=== PATIENT | female | born 1935 | race Caucasian/White ===

== ENCOUNTER 2022-09-11 09:58 | Inpatient (IN) | payer MEDICARE, BC ==
[~2022-09-11] VITALS: Ht 167.6 cm; Wt 93.3 kg
[2022-09-11 11:20] LABS: BASOPHILS % (AUTO) 0.3 % (0-1); EOSINOPHILS # (AUTO) 0.1 X10'3 (0-0.9); EOSINOPHILS % (AUTO) 0.7 % (0-6); HEMATOCRIT 36.1 % (35.0-45.0); LYMPHOCYTES # (AUTO) 0.7 X10'3 (1.1-4.8); LYMPHOCYTES % (AUTO) 5.7 % (21-51); MEAN CORPUSCULAR HEMOGLOBIN 31.1 PG (27.0-31.0); MEAN CORPUSCULAR HGB CONC 33.2 g/dL (33.0-36.5); MEAN CORPUSCULAR VOLUME 93.6 FL (78-98); MEAN PLATELET VOLUME 8.1 FL (7.4-10.4); MONOCYTES # (AUTO) 0.3 X10'3 (0-0.9); MONOCYTES % (AUTO) 2.2 % (2-12); NEUTROPHILS # (AUTO) 10.5 X10'3 (1.8-7.7); NEUTROPHILS % (AUTO) 91.1 % (42-75); PLATELET COUNT 201 X10'3 (140-440); RED BLOOD COUNT 3.86 X10'6 (4.20-5.60); RED CELL DISTRIBUTION WIDTH 14.7 % (11.5-14.5); WHITE BLOOD COUNT 11.6 X10'3 (4.5-11.0)
[2022-09-11 11:37] LABS: ALANINE AMINOTRANSFERASE 13 U/L (12-78); ALBUMIN 3.7 G/DL (3.4-5.0); ALBUMIN/GLOBULIN RATIO 1.1 (1.1-1.5); ALKALINE PHOSPHATASE 87 IU/L (46-116); ANION GAP 9 (8-16); ASPARTATE AMINO TRANSFERASE 12 U/L (10-37); BILIRUBIN,TOTAL 0.4 MG/DL (0.1-1.0); BLOOD UREA NITROGEN 42 MG/DL (7-18); BUN/CREATININE RATIO 20.2 (6.6-38.0); CALCIUM 9.5 MG/DL (8.5-10.1); CHLORIDE 104 MMOL/L (99-107); CREATININE 2.08 MG/DL (0.40-0.90); GLUCOSE 224 MG/DL (70-104); POTASSIUM 5.2 MMOL/L (3.5-5.1); SODIUM 138 MMOL/L (135-145); TOTAL CARBON DIOXIDE 25.5 MMOL/L (24-32); TOTAL PROTEIN 7.1 G/DL (6.4-8.2); eGFR 22 ML/MIN
[2022-09-11] MEDS ORDERED: ipratropium/albuterol 3ml nebule NEB ONE (12:25)
[2022-09-11] MEDS ORDERED: albuterol 2.5 MG/3 ML nebule NEB ONE (13:10)
[2022-09-11] MEDS ORDERED: CefTRIAXone/D5W-Rocephin 1gm 50 ML IV ONE (13:10)
[2022-09-11] MEDS ORDERED: HYDROcodone/acetaminophen 5mg/325mg tablet PO PRN (13:30)
[2022-09-11] MEDS ORDERED: ipratropium/albuterol 3ml nebule NEB PRN (13:30)
[2022-09-11] MEDS ORDERED: POTASSIUM BICARB 20meq eff tab 20 MEQ TABLET.EFF PO PRN ×2 (13:30)
[2022-09-11] MEDS ORDERED: ondansetron/PF 4mg/2ml inj IV PRN (13:30)
[2022-09-11] MEDS ORDERED: magnesium Cl slow-release 64mg tablet PO PRN (13:30)
[2022-09-11] MEDS ORDERED: potassium CL 10mEq/100ml bag 100 ML IV PRN (13:30)
[2022-09-11] MEDS ORDERED: magnesium 2GM in 50ml NS 50 ML IV PRN (13:30)
[2022-09-11] MEDS ORDERED: magnesium 4gm in 100ml NS 100 ML IV PRN (13:30)
[2022-09-11] MEDS ORDERED: magnesium hydroxide 30ml (MOM) UD suspension PO PRN (13:30)
[2022-09-11] MEDS ORDERED: methylPREDNISolone sod succ 125mg/2ml vial IV ONE (14:00)
[2022-09-11] MEDS ORDERED: DEXTROSE 15 GM of carb/4 tabs (each vial/BOTTLE has 4 tablets) PO PRN ×2 (14:45)
[2022-09-11] MEDS ORDERED: glucagon, human recombinant 1mg kit SUBCUT PRN (14:45)
[2022-09-11] MEDS ORDERED: MESSAGE TO PHARMACY PO ONE (14:45)
[2022-09-11] MEDS ORDERED: hydrALAZINE 20mg/ml inj. IV PRN (14:45)
[2022-09-11] MEDS ORDERED: dextrose 50%-water 50ml dispensing syringe IV PRN ×2 (14:45)
[2022-09-11] MEDS ORDERED: QUET25TA36 PO (14:59)
[2022-09-11] MEDS ORDERED: WARF6TAB49 PO (14:59)
[2022-09-11] MEDS ORDERED: WARF4TAB69 PO (14:59)
[2022-09-11] MEDS ORDERED: AMLO5TAB16 PO (14:59)
[2022-09-11] MEDS ORDERED: TIOT4MIS3 INH (14:59)
[2022-09-11] MEDS ORDERED: OMEP20CA16 PO (14:59)
[2022-09-11] MEDS ORDERED: ASPI81TA52 PO (14:59)
[2022-09-11] MEDS ORDERED: LEVO-145 PO (14:59)
[2022-09-11] MEDS ORDERED: ALBU17AE26 PO (14:59)
[2022-09-11] MEDS: ipratropium/albuterol 3ml nebule NEB SCH ×3 (15:00→23:30)
[2022-09-11] MEDS ORDERED: INSU100I45 SQ (15:00)
[2022-09-11 15:45] LABS: MAGNESIUM 1.6 MG/DL (1.5-2.4); POTASSIUM 5.7 MMOL/L (3.5-5.1)
[2022-09-11] MEDS: amLODIPine 5mg tablet PO SCH (15:53)
--- NOTE | 2022-09-11 19:58 | NUR ---
> received REPORT FROM PRIMARY RN ON A BREAK
[2022-09-11] MEDS ORDERED: heparin, porcine 5000 units/ml vial SQ SCH (20:00)
[2022-09-11] MEDS: K and/or MAG REPLACEMENT MC SCH (20:00)
--- NOTE | 2022-09-11 20:11 | NUR ---
> PT HAD KNOWN SEVERE ANAPHYLACTIC ALLERGY TO HEPARIN BASED MEDS, LAST HEPARIN SHOT , PATIENT PASSED OUT ... PT ALSO ALLERGIC TO LOVENOX A LOW BASED HEPARIN =ANAPHYLACTIC REACTION, HEPARIN SQ NOT GIVEN
[2022-09-11] MEDS: docusate sod 100mg capsule PO SCH (20:21)
--- NOTE | 2022-09-11 20:31 | NUR ---
> >400 ACCUCHECK BLOOD SUGAR CHECK, PRIMARY RN AWARE, LAST SERUM GLUCOSE WAS 318
--- NOTE | 2022-09-11 20:35 | NUR ---
promotional table spacer promotional table spacer Page Sent promotional table spacer PAGER ID: [phone] MESSAGE: Pt in ED#6, blood glucose 400. She has lantus order, but not regular insulin coverage. her diet current is regular, should be changed to consistent carb diet. Thank you! Shefali
[2022-09-11] MEDS ORDERED: insulin glargine (Lantus) pen - multi-dose SQ ONE (20:45)
--- NOTE | 2022-09-11 21:45 | NUR ---
Pt arrived to U bed 0274Y. Pt settled in bed. Report given to this RN from Cony. Belongings noted.
[2022-09-11 21:50] VITALS: BP 185/77
[2022-09-11] MEDS: insulin glargine (Lantus) pen - multi-dose SQ SCH (22:05)
--- NOTE | 2022-09-11 22:13 | NUR ---
Gia and then spoke with Dr. Tomlin in regards to pt wanted Tylenol but prn reason said for fever only. MD stated ok to change prn to include pain. also stated he wanted this RN to check blood sugar and sent result to him after Lantus 20 units was given earlier tonight. See charting for details.
[2022-09-11] MEDS: insulin Lispro (HumaLOG) vial - multi-dose SQ SCH (23:46)
[2022-09-11] MEDS: acetaminophen 325mg tablet PO PRN (23:54)
[2022-09-12 02:00] VITALS: BP 160/54
[2022-09-12] MEDS: ipratropium/albuterol 3ml nebule NEB SCH ×6 (03:23→23:15)
[2022-09-12 06:00] VITALS: BP 150/65
[2022-09-12 06:23] LABS: BASOPHILS % (AUTO) 0.2 % (0-1); EOSINOPHILS % (AUTO) 0 % (0-6); HEMATOCRIT 34.6 % (35.0-45.0); HEMOGLOBIN 11.5 g/dl (12.0-16.0); LYMPHOCYTES # (AUTO) 0.6 X10'3 (1.1-4.8); LYMPHOCYTES % (AUTO) 5.6 % (21-51); MEAN CORPUSCULAR HEMOGLOBIN 30.9 PG (27.0-31.0); MEAN CORPUSCULAR HGB CONC 33.2 g/dL (33.0-36.5); MEAN CORPUSCULAR VOLUME 93.3 FL (78-98); MEAN PLATELET VOLUME 8.5 FL (7.4-10.4); MONOCYTES # (AUTO) 0.7 X10'3 (0-0.9); MONOCYTES % (AUTO) 5.9 % (2-12); NEUTROPHILS # (AUTO) 9.9 X10'3 (1.8-7.7); NEUTROPHILS % (AUTO) 88.3 % (42-75); PLATELET COUNT 218 X10'3 (140-440); RED BLOOD COUNT 3.71 X10'6 (4.20-5.60); RED CELL DISTRIBUTION WIDTH 14.2 % (11.5-14.5); WHITE BLOOD COUNT 11.2 X10'3 (4.5-11.0)
[2022-09-12 06:49] LABS: ALANINE AMINOTRANSFERASE 16 U/L (12-78); ALBUMIN 3.3 G/DL (3.4-5.0); ALKALINE PHOSPHATASE 73 IU/L (46-116); ANION GAP 5 (8-16); ASPARTATE AMINO TRANSFERASE 19 U/L (10-37); BILIRUBIN,TOTAL 0.6 MG/DL (0.1-1.0); BLOOD UREA NITROGEN 51 MG/DL (7-18); BUN/CREATININE RATIO 20.8 (6.6-38.0); CALCIUM 9.4 MG/DL (8.5-10.1); CHLORIDE 105 MMOL/L (99-107); CREATININE 2.45 MG/DL (0.40-0.90); GLUCOSE 146 MG/DL (70-104); MAGNESIUM 1.6 MG/DL (1.5-2.4); POTASSIUM 4.7 MMOL/L (3.5-5.1); SODIUM 136 MMOL/L (135-145); TOTAL CARBON DIOXIDE 26.3 MMOL/L (24-32); TOTAL PROTEIN 6.5 G/DL (6.4-8.2); eGFR 19 ML/MIN
--- NOTE | 2022-09-12 07:14 | NUR ---
Problems reprioritized. Patient report given, questions answered & plan of care reviewed with ROBBIE Corbett. Pt resting in bed and in no acute distress.
[2022-09-12] MEDS: K and/or MAG REPLACEMENT MC SCH ×2 (08:22→20:00)
[2022-09-12] MEDS: CefTRIAXone/D5W-Rocephin 1gm 50 ML IV SCH (08:28)
[2022-09-12] MEDS: docusate sod 100mg capsule PO SCH ×2 (08:28→22:19)
[2022-09-12] MEDS: amLODIPine 5mg tablet PO SCH (08:29)
[2022-09-12] MEDS: insulin Lispro (HumaLOG) vial - multi-dose SQ SCH (08:40)
--- NOTE | 2022-09-12 09:33 | NUR ---
Diabetes consult: Pt w/ hx of DM A1c 7 per EMR. Well controlled and appropriate for age per ADA guidelines. DM ed not indicated at this time. Addendum: 09/12/22 at [address] Amended: Links added.
[2022-09-12 10:00] VITALS: BP 146/67
--- NOTE | 2022-09-12 11:36 | NUR ---
PAGER ID: [phone] MESSAGE: [id number] Paulette Henderson, May I get protonix or tums for the patient? Chelle [phone]
[2022-09-12] MEDS ORDERED: non-formulary drug (Albuterol 2 PUFF) PO PRN (12:40)
[2022-09-12] MEDS: calcium carbonate 500mg chew tablet PO PRN (14:40)
--- NOTE | 2022-09-12 17:07 | NUR ---
Discussed with charge, patients BS, Insulin held at lunch time due to a borderline low BS of 70. Doctor aware.
[2022-09-12 18:00] VITALS: BP 133/53
--- NOTE | 2022-09-12 18:25 | NUR ---
Patient in room PCU 3027. I have received report from Chelle and had the opportunity to ask questions and assume patient care. Pt resting in bed at handoff.
--- NOTE | 2022-09-12 18:42 | NUR ---
Problems reprioritized. Patient report given, questions answered & plan of care reviewed with Selina AVALOS.
--- NOTE | 2022-09-12 19:33 | NUR ---
BS 87----pt refused insulin at this time. She said, "That is to low for me." Will recheck HS blood sugar. Addendum: 09/13/22 at 0044 by Dalton Levine RN HS blood sugar 112. Pt stated that it is to low for her and does not want any Lantus. She stated that her wants her blood sugar to be 150. Educated her on the difference between short and long acting insulin. Pt still refused lantus. .
[2022-09-12] MEDS: insulin glargine (Lantus) pen - multi-dose SQ SCH (21:00)
[2022-09-12] MEDS: QUEtiapine 25mg tablet PO PRN (22:19)
[2022-09-12] MEDS: acetaminophen 325mg tablet PO PRN (22:20)
[2022-09-12 22:25] VITALS: BP 152/62
[2022-09-12] MEDS: mag hydrox/Alum hydrox/simeth 30ml oral suspension PO PRN (23:09)
--- NOTE | 2022-09-13 00:11 | NUR ---
Spoke with pharmacist Ron. INR 3 and no coumadin dose due tonight.
[2022-09-13 01:31] VITALS: BP 121/48
[2022-09-13] MEDS: ipratropium/albuterol 3ml nebule NEB SCH ×6 (03:24→23:53)
--- NOTE | 2022-09-13 04:19 | NUR ---
Overnight, pt remains alert and oriented x4. NSR on monitor. Pt remains on 3.5L/NC. No BM. Pt voids using bedside commode. IV saline locked. Pt got Tylenol for pain, and Maalox for heartburn. Pt refused both lantus and sliding scale insulin. Addendum: 09/13/22 at 0744 by Dalton Levine RN Pt also got seroquel to help with sleeping.
[2022-09-13 06:19] LABS: BASOPHILS # (AUTO) 0.1 X10'3 (0-0.2); BASOPHILS % (AUTO) 0.6 % (0-1); EOSINOPHILS # (AUTO) 0.3 X10'3 (0-0.9); EOSINOPHILS % (AUTO) 2.8 % (0-6); HEMATOCRIT 30.9 % (35.0-45.0); HEMOGLOBIN 10.7 g/dl (12.0-16.0); LYMPHOCYTES # (AUTO) 2.5 X10'3 (1.1-4.8); LYMPHOCYTES % (AUTO) 23.8 % (21-51); MEAN CORPUSCULAR HEMOGLOBIN 32.1 PG (27.0-31.0); MEAN CORPUSCULAR HGB CONC 34.6 g/dL (33.0-36.5); MEAN CORPUSCULAR VOLUME 92.7 FL (78-98); MEAN PLATELET VOLUME 8.5 FL (7.4-10.4); MONOCYTES # (AUTO) 0.8 X10'3 (0-0.9); MONOCYTES % (AUTO) 7.5 % (2-12); NEUTROPHILS # (AUTO) 6.9 X10'3 (1.8-7.7); NEUTROPHILS % (AUTO) 65.3 % (42-75); PLATELET COUNT 175 X10'3 (140-440); RED BLOOD COUNT 3.33 X10'6 (4.20-5.60); RED CELL DISTRIBUTION WIDTH 14.3 % (11.5-14.5); WHITE BLOOD COUNT 10.6 X10'3 (4.5-11.0)
[2022-09-13 06:43] LABS: ALANINE AMINOTRANSFERASE 15 U/L (12-78); ALBUMIN/GLOBULIN RATIO 1.2 (1.1-1.5); ALKALINE PHOSPHATASE 62 IU/L (46-116); ANION GAP 7 (8-16); ASPARTATE AMINO TRANSFERASE 23 U/L (10-37); BILIRUBIN,TOTAL 0.6 MG/DL (0.1-1.0); BLOOD UREA NITROGEN 52 MG/DL (7-18); BUN/CREATININE RATIO 23.7 (6.6-38.0); CALCIUM 9.1 MG/DL (8.5-10.1); CHLORIDE 104 MMOL/L (99-107); CREATININE 2.19 MG/DL (0.40-0.90); GLUCOSE 123 MG/DL (70-104); MAGNESIUM 2.2 MG/DL (1.5-2.4); POTASSIUM 4.7 MMOL/L (3.5-5.1); SODIUM 140 MMOL/L (135-145); TOTAL CARBON DIOXIDE 28.6 MMOL/L (24-32); TOTAL PROTEIN 5.6 G/DL (6.4-8.2); eGFR 21 ML/MIN
--- NOTE | 2022-09-13 06:45 | NUR ---
Problems reprioritized. Patient report given, questions answered & plan of care reviewed with Chelle. Pt sleeping and in no acute distress at time of handoff.
--- NOTE | 2022-09-13 07:04 | NUR ---
Patient in room PCU 2175Ab. I have received report from ROBBIE Marks and had the opportunity to ask questions and assume patient care.
[2022-09-13 07:06] VITALS: BP 135/42
[2022-09-13] MEDS: K and/or MAG REPLACEMENT MC SCH ×2 (07:38→19:32)
[2022-09-13] MEDS: levoTHYROXINE 100mcg tablet PO SCH (07:41)
[2022-09-13] MEDS: calcium carbonate 500mg chew tablet PO PRN (07:41)
[2022-09-13] MEDS: CefTRIAXone/D5W-Rocephin 1gm 50 ML IV SCH (07:41)
[2022-09-13] MEDS: pantoprazole 40mg Tablet.DR PO SCH (07:42)
[2022-09-13] MEDS: aspirin 81mg, enteric-coated 1 TAB TABLET.DR PO SCH (07:45)
[2022-09-13] MEDS: amLODIPine 5mg tablet PO SCH (07:45)
[2022-09-13] MEDS: docusate sod 100mg capsule PO SCH ×2 (07:46→19:43)
[2022-09-13] MEDS: Tiotropium Br/Olodaterol HCl (Stiolto Respimat Inhal Spray) IH SCH (08:00)
[2022-09-13 11:00] VITALS: BP 157/60
--- NOTE | 2022-09-13 12:36 | NUR ---
Patient refusing insulin due to lower blood sugars for breakfast and lunch. Addendum: 09/13/22 at 1237 by Chelle Cartwright RN Amended: Links added.
[2022-09-13 14:30] VITALS: BP 130/51
[2022-09-13] MEDS: acetaminophen 325mg tablet PO PRN (17:55)
[2022-09-13 18:00] VITALS: BP 156/67
--- NOTE | 2022-09-13 18:20 | NUR ---
Patient in room PCU 3027. I have received report from Chelle AVALOS and had the opportunity to ask questions and assume patient care.
--- NOTE | 2022-09-13 18:28 | NUR ---
Student documentation: I have reviewed and agree with all interventions, assessments performed and documented by Chelle AVALOS. Student Medication Administration: For this medication-pass time frame, all medication were reviewed, dispensed, administered and documented per hospital policy by Chelle AVALOS.
--- NOTE | 2022-09-13 20:15 | NUR ---
Agree with physical assessment done by Valentino Jama LVN.
[2022-09-13] MEDS ORDERED: warfarin 4mg tablet PO ONE (21:00)
[2022-09-13] MEDS: insulin glargine (Lantus) pen - multi-dose SQ SCH (21:00)
[2022-09-13 22:00] VITALS: BP 136/50
[2022-09-14] MEDS: acetaminophen 325mg tablet PO PRN ×3 (00:50→17:43)
[2022-09-14 02:00] VITALS: BP 124/44
[2022-09-14] MEDS: ipratropium/albuterol 3ml nebule NEB SCH ×6 (03:35→23:59)
[2022-09-14 06:00] VITALS: BP 139/45
--- NOTE | 2022-09-14 06:25 | NUR ---
Problems reprioritized. Patient report given, questions answered & plan of care reviewed with Megan AVALOS.
[2022-09-14 06:41] LABS: BASOPHILS # (AUTO) 0.1 X10'3 (0-0.2); BASOPHILS % (AUTO) 0.6 % (0-1); EOSINOPHILS # (AUTO) 0.6 X10'3 (0-0.9); EOSINOPHILS % (AUTO) 6.4 % (0-6); HEMATOCRIT 32.2 % (35.0-45.0); LYMPHOCYTES # (AUTO) 2.6 X10'3 (1.1-4.8); LYMPHOCYTES % (AUTO) 30.5 % (21-51); MEAN CORPUSCULAR HEMOGLOBIN 31.6 PG (27.0-31.0); MEAN CORPUSCULAR HGB CONC 34.3 g/dL (33.0-36.5); MEAN CORPUSCULAR VOLUME 92.2 FL (78-98); MEAN PLATELET VOLUME 8.1 FL (7.4-10.4); MONOCYTES # (AUTO) 0.8 X10'3 (0-0.9); MONOCYTES % (AUTO) 9.1 % (2-12); NEUTROPHILS # (AUTO) 4.6 X10'3 (1.8-7.7); NEUTROPHILS % (AUTO) 53.4 % (42-75); PLATELET COUNT 177 X10'3 (140-440); RED BLOOD COUNT 3.49 X10'6 (4.20-5.60); RED CELL DISTRIBUTION WIDTH 14.3 % (11.5-14.5); WHITE BLOOD COUNT 8.6 X10'3 (4.5-11.0)
[2022-09-14 06:58] LABS: ALANINE AMINOTRANSFERASE 19 U/L (12-78); ALBUMIN/GLOBULIN RATIO 1.1 (1.1-1.5); ALKALINE PHOSPHATASE 70 IU/L (46-116); ANION GAP 6 (8-16); ASPARTATE AMINO TRANSFERASE 18 U/L (10-37); BILIRUBIN,TOTAL 0.5 MG/DL (0.1-1.0); BLOOD UREA NITROGEN 54 MG/DL (7-18); BUN/CREATININE RATIO 24.4 (6.6-38.0); CALCIUM 8.8 MG/DL (8.5-10.1); CHLORIDE 101 MMOL/L (99-107); CREATININE 2.21 MG/DL (0.40-0.90); GLUCOSE 179 MG/DL (70-104); POTASSIUM 4.8 MMOL/L (3.5-5.1); SODIUM 137 MMOL/L (135-145); TOTAL CARBON DIOXIDE 29.9 MMOL/L (24-32); TOTAL PROTEIN 5.7 G/DL (6.4-8.2); eGFR 21 ML/MIN
[2022-09-14] MEDS: Tiotropium Br/Olodaterol HCl (Stiolto Respimat Inhal Spray) IH SCH (08:00)
[2022-09-14] MEDS: K and/or MAG REPLACEMENT MC SCH ×2 (08:00→20:00)
[2022-09-14] MEDS: insulin Lispro (HumaLOG) vial - multi-dose SQ SCH ×3 (08:51→21:59)
[2022-09-14] MEDS: CefTRIAXone/D5W-Rocephin 1gm 50 ML IV SCH (08:55)
[2022-09-14] MEDS: aspirin 81mg, enteric-coated 1 TAB TABLET.DR PO SCH (08:55)
[2022-09-14] MEDS: docusate sod 100mg capsule PO SCH ×2 (08:55→21:34)
[2022-09-14] MEDS: pantoprazole 40mg Tablet.DR PO SCH (08:56)
[2022-09-14] MEDS: amLODIPine 5mg tablet PO SCH (08:56)
[2022-09-14] MEDS: levoTHYROXINE 100mcg tablet PO SCH (08:56)
--- NOTE | 2022-09-14 09:08 | NUR ---
Pt refused insluin, 7 units per protocol, pt wants to wait until lunch to see how it is then, and then will reconsider taking the subcu insulin.
--- NOTE | 2022-09-14 09:14 | NUR ---
PAGER ID: [phone] Dr Meade MESSAGE: [id number], Brown, needs nystatin powder for redness under breasts and panus. Thank you, Megan [phone] Addendum: 09/14/22 at 1520 by Megan Levine RN received verbal order for nystatin powder, TID, first application has been applied.
[2022-09-14 12:21] VITALS: BP 147/42
[2022-09-14] MEDS ORDERED: predniSONE 20 mg tablet PO ONE (13:15)
[2022-09-14] MEDS: nystatin 15 GM powder TP SCH ×2 (13:41→21:00)
--- NOTE | 2022-09-14 15:21 | NUR ---
Pt ambulated in halls with BUNG DROPPER, 300 feet.
--- NOTE | 2022-09-14 15:48 | NUR ---
PT requested blood glucose to be checked, pt symptomatic, glucose 41, pt given 1/2 amp D50 and 240 ml apple juice. Addendum: 09/14/22 at 1610 by Megan Levine RN recheck of glucose, 93.
[2022-09-14 16:14] VITALS: BP 112/41
--- NOTE | 2022-09-14 16:46 | NUR ---
PAGER ID: [phone] Dr Meade MESSAGE: [id number], Brown, received 6 units insulin at lunch, Glucose dropped to 41, symptomatic, received D50, apple juice, rechecked 93, then 96, Megan [phone]
--- NOTE | 2022-09-14 16:46 | NUR ---
recheck glucose 96, pt resting
--- NOTE | 2022-09-14 18:15 | NUR ---
Patient in room PCU 3027. I have received report from Megan AVALOS and had the opportunity to ask questions and assume patient care.
[2022-09-14] MEDS ORDERED: warfarin 5mg tablet PO ONE (21:00)
--- NOTE | 2022-09-14 21:29 | NUR ---
called pharmacy spoke w/ CARLA who advised INR is 2.1, ok to give 5mg warfarin tab that was in pt specific bin
[2022-09-14] MEDS: insulin glargine (Lantus) pen - multi-dose SQ SCH (21:58)
--- NOTE | 2022-09-14 23:30 | NUR ---
Agree with Miriam HOBBS physical assessment except where I added my own assessment.
[2022-09-15] MEDS: QUEtiapine 25mg tablet PO PRN (00:36)
[2022-09-15] MEDS: ipratropium/albuterol 3ml nebule NEB SCH ×3 (04:00→11:36)
[2022-09-15 06:00] VITALS: BP 136/52
--- NOTE | 2022-09-15 06:16 | NUR ---
Problems reprioritized. Patient report given, questions answered & plan of care reviewed with Megan AVALOS.
[2022-09-15 07:12] LABS: BASOPHILS % (AUTO) 0.2 % (0-1); EOSINOPHILS % (AUTO) 0.3 % (0-6); HEMATOCRIT 31.9 % (35.0-45.0); LYMPHOCYTES # (AUTO) 0.7 X10'3 (1.1-4.8); LYMPHOCYTES % (AUTO) 7.3 % (21-51); MEAN CORPUSCULAR HEMOGLOBIN 31.7 PG (27.0-31.0); MEAN CORPUSCULAR HGB CONC 34.5 g/dL (33.0-36.5); MEAN CORPUSCULAR VOLUME 91.7 FL (78-98); MEAN PLATELET VOLUME 8.6 FL (7.4-10.4); MONOCYTES # (AUTO) 0.6 X10'3 (0-0.9); MONOCYTES % (AUTO) 6.3 % (2-12); NEUTROPHILS # (AUTO) 7.7 X10'3 (1.8-7.7); NEUTROPHILS % (AUTO) 85.9 % (42-75); PLATELET COUNT 185 X10'3 (140-440); RED BLOOD COUNT 3.48 X10'6 (4.20-5.60); RED CELL DISTRIBUTION WIDTH 14.2 % (11.5-14.5)
[2022-09-15 07:28] LABS: ALANINE AMINOTRANSFERASE 18 U/L (12-78); ALBUMIN/GLOBULIN RATIO 1.1 (1.1-1.5); ALKALINE PHOSPHATASE 61 IU/L (46-116); ANION GAP 8 (8-16); ASPARTATE AMINO TRANSFERASE 12 U/L (10-37); BILIRUBIN,TOTAL 0.6 MG/DL (0.1-1.0); BLOOD UREA NITROGEN 55 MG/DL (7-18); CALCIUM 8.6 MG/DL (8.5-10.1); CHLORIDE 101 MMOL/L (99-107); CREATININE 2.39 MG/DL (0.40-0.90); GLUCOSE 255 MG/DL (70-104); MAGNESIUM 1.9 MG/DL (1.5-2.4); POTASSIUM 5.1 MMOL/L (3.5-5.1); SODIUM 137 MMOL/L (135-145); TOTAL CARBON DIOXIDE 28.5 MMOL/L (24-32); TOTAL PROTEIN 5.8 G/DL (6.4-8.2); eGFR 19 ML/MIN
[2022-09-15] MEDS: insulin Lispro (HumaLOG) vial - multi-dose SQ SCH (07:56)
[2022-09-15] MEDS: pantoprazole 40mg Tablet.DR PO SCH (07:57)
[2022-09-15] MEDS: levoTHYROXINE 100mcg tablet PO SCH (07:57)
[2022-09-15] MEDS: aspirin 81mg, enteric-coated 1 TAB TABLET.DR PO SCH (07:57)
[2022-09-15 07:58] VITALS: BP_SYST 136
[2022-09-15] MEDS: amLODIPine 5mg tablet PO SCH (07:58)
[2022-09-15] MEDS: nystatin 15 GM powder TP SCH (07:59)
[2022-09-15] MEDS: CefTRIAXone/D5W-Rocephin 1gm 50 ML IV SCH (07:59)
[2022-09-15] MEDS: docusate sod 100mg capsule PO SCH (07:59)
[2022-09-15] MEDS: Tiotropium Br/Olodaterol HCl (Stiolto Respimat Inhal Spray) IH SCH (08:00)
[2022-09-15] MEDS ORDERED: predniSONE 20 mg tablet PO SCH (08:30)
[2022-09-15] MEDS: mag hydrox/Alum hydrox/simeth 30ml oral suspension PO PRN (08:50)
[2022-09-15] MEDS ORDERED: AZIT-83 PO (09:32)
[2022-09-15] MEDS ORDERED: PRED20TA PO (09:32)
[2022-09-15] MEDS: K and/or MAG REPLACEMENT MC SCH (09:54)
--- NOTE | 2022-09-15 13:40 | NUR ---
Pt received 3 units insulin for breakfast, covering her blood glucose 209, pt is very sensitive to insulin, yesterday dropped to 41 when nutrition and correctional insulin given. 3 units correctional given, pre lunch glucose ws 145.
--- NOTE | 2022-09-15 13:41 | NUR ---
Pt received discharge education re: new meds, medication schedule, and follow up appointment instructions. All questions were answered. monitor car operator removed, IV discontinued, Pt required Oxygen to be delivered from [facility], her provider, as her ride home was not able to bring her O2 tank. Pt picked up by family, all belongings with patient, she was wheeled out to discharge.
[2022-09-15] MEDS ORDERED: warfarin 3mg tablet PO ONE (21:00)
== END 2022-09-15 13:41 | disposition home health service (06) | DRG 189 ==
LOC: ER 09:58 → ED HOLD 13:37 → EDBEDREQ 20:53 → PCU 3S 21:35
PROVIDERS: ADMIT Internal Medicine; ATTEND Internal Medicine
DX: J96.21 Acute and chronic respiratory failure with hypoxia (principal); J44.1 Chronic obstructive pulmonary disease with (acute) exacerbation; J44.0 Chronic obstructive pulmonary disease with (acute) lower respiratory infection; J20.9 Acute bronchitis, unspecified; N18.9 Chronic kidney disease, unspecified; D64.9 Anemia, unspecified; K21.9 Gastro-esophageal reflux disease without esophagitis; I48.91 Unspecified atrial fibrillation; Z79.01 Long term (current) use of anticoagulants; Z85.528 Personal history of other malignant neoplasm of kidney; Z87.891 Personal history of nicotine dependence; Z90.49 Acquired absence of other specified parts of digestive tract; Z90.5 Acquired absence of kidney; Z95.2 Presence of prosthetic heart valve; Z88.0 Allergy status to penicillin; Z88.8 Allergy status to other drugs, medicaments and biological substances; Z99.81 Dependence on supplemental oxygen
CPT/HCPCS: 36415; 71046; 71250; 80053; 82948; 83036; 83605; 83735; 83880; 84132; 84443; 85025; 85610; 87040; 87081; 93005; 93306; 94640; 94760; 99285; A6258; G0378; J0360; J0696; J1815; J2930; J3490; J7512

== ENCOUNTER 2022-10-16 10:07 | Inpatient (IN) | payer MEDICARE, BC ==
[~2022-10-16] VITALS: Ht 165.1 cm; Wt 93.8 kg
[~2022-10-16 10:07] MED LIST: ALBU17AE26 PO; AMLO5TAB16 PO; ASPI81TA52 PO; INSU100I45 SQ; LEVO-145 PO; OMEP20CA16 PO; PRED20TA PO; QUET25TA36 PO; TIOT4MIS3 INH; WARF4TAB69 PO; WARF6TAB49 PO
[2022-10-16 10:38] LABS: BASOPHILS % (AUTO) 0.3 % (0-1); EOSINOPHILS # (AUTO) 0.1 X10'3 (0-0.9); EOSINOPHILS % (AUTO) 0.9 % (0-6); HEMATOCRIT 31.6 % (35.0-45.0); HEMOGLOBIN 10.8 g/dl (12.0-16.0); LYMPHOCYTES # (AUTO) 0.8 X10'3 (1.1-4.8); LYMPHOCYTES % (AUTO) 5.5 % (21-51); MEAN CORPUSCULAR HGB CONC 34.1 g/dL (33.0-36.5); MEAN CORPUSCULAR VOLUME 90.9 FL (78-98); MEAN PLATELET VOLUME 8.2 FL (7.4-10.4); MONOCYTES # (AUTO) 0.8 X10'3 (0-0.9); MONOCYTES % (AUTO) 5.6 % (2-12); NEUTROPHILS # (AUTO) 12.4 X10'3 (1.8-7.7); NEUTROPHILS % (AUTO) 87.7 % (42-75); PLATELET COUNT 218 X10'3 (140-440); RED BLOOD COUNT 3.47 X10'6 (4.20-5.60); RED CELL DISTRIBUTION WIDTH 14.1 % (11.5-14.5); WHITE BLOOD COUNT 14.1 X10'3 (4.5-11.0)
[2022-10-16 10:57] LABS: ALANINE AMINOTRANSFERASE 13 U/L (12-78); ALBUMIN 3.1 G/DL (3.4-5.0); ALBUMIN/GLOBULIN RATIO 0.9 (1.1-1.5); ALKALINE PHOSPHATASE 82 IU/L (46-116); ANION GAP 8 (8-16); ASPARTATE AMINO TRANSFERASE 10 U/L (10-37); BILIRUBIN,TOTAL 0.9 MG/DL (0.1-1.0); BLOOD UREA NITROGEN 29 MG/DL (7-18); BUN/CREATININE RATIO 17.1 (6.6-38.0); CALCIUM 9.4 MG/DL (8.5-10.1); CHLORIDE 102 MMOL/L (99-107); GLUCOSE 212 MG/DL (70-104); POTASSIUM 5.2 MMOL/L (3.5-5.1); SODIUM 138 MMOL/L (135-145); TOTAL CARBON DIOXIDE 28.5 MMOL/L (24-32); TOTAL PROTEIN 6.6 G/DL (6.4-8.2); eGFR 28 ML/MIN
[2022-10-16] MEDS ORDERED: albuterol 2.5 MG/3 ML nebule NEB ONE (14:15)
[2022-10-16] MEDS ORDERED: CefTRIAXone/D5W-Rocephin 1gm 50 ML IV ONE (14:20)
[2022-10-16] MEDS ORDERED: azithromycin/NS 500mg/250ml 250 ML IV ONE (15:40)
[2022-10-16] MEDS ORDERED: magnesium Cl slow-release 64mg tablet PO PRN (15:50)
[2022-10-16] MEDS ORDERED: potassium Cl 20 mEq SR tablet PO PRN ×2 (15:50)
[2022-10-16] MEDS ORDERED: ondansetron 4mg rapidly disintigrating tab PO PRN (15:50)
[2022-10-16] MEDS ORDERED: acetaminophen 325mg tablet PO PRN (15:50)
[2022-10-16] MEDS ORDERED: magnesium 4gm in 100ml NS 100 ML IV PRN (15:50)
[2022-10-16] MEDS ORDERED: furosemide 20 MG/2 ML vial IV ONE (15:50)
[2022-10-16] MEDS ORDERED: potassium Cl 40MEQ/1/2NS 520ml 520 ML IV PRN (15:50)
[2022-10-16] MEDS ORDERED: ondansetron/PF 4mg/2ml inj IV PRN (15:50)
[2022-10-16] MEDS ORDERED: bisacodyl 10mg suppository rectal RC PRN (15:50)
[2022-10-16] MEDS: acetaminophen 325mg tablet PO PRN (16:23)
[2022-10-16 16:31] LABS: MAGNESIUM 1.7 MG/DL (1.5-2.4); POTASSIUM 4.8 MMOL/L (3.5-5.1)
[2022-10-16 16:33] LABS: APTT 57 SECONDS (22-32)
[2022-10-16] MEDS ORDERED: DULO60CA65 PO (19:14)
[2022-10-16] MEDS ORDERED: TES100C PO (19:14)
[2022-10-16] MEDS ORDERED: GUAI600T45 PO (19:14)
[2022-10-16] MEDS ORDERED: CYCL-1 PO (19:32)
[2022-10-16] MEDS ORDERED: ONDA4TAB12 PO (19:32)
[2022-10-16] MEDS ORDERED: TIOT4MIS3 IH (19:32)
[2022-10-16] MEDS ORDERED: CHOL200074 PO (19:32)
[2022-10-16] MEDS: K and/or MAG REPLACEMENT MC SCH (19:45)
[2022-10-16] MEDS: furosemide 20 MG/2 ML vial IV SCH (20:35)
[2022-10-16] MEDS: albuterol 2.5 MG/3 ML nebule NEB PRN ×2 (21:02→23:30)
[2022-10-17] MEDS: albuterol 2.5 MG/3 ML nebule NEB PRN (03:46)
[2022-10-17 06:54] LABS: BASOPHILS # (AUTO) 0.1 X10'3 (0-0.2); BASOPHILS % (AUTO) 0.5 % (0-1); EOSINOPHILS # (AUTO) 0.2 X10'3 (0-0.9); EOSINOPHILS % (AUTO) 1.5 % (0-6); HEMATOCRIT 31.1 % (35.0-45.0); HEMOGLOBIN 10.2 g/dl (12.0-16.0); LYMPHOCYTES # (AUTO) 1.6 X10'3 (1.1-4.8); LYMPHOCYTES % (AUTO) 11.6 % (21-51); MEAN CORPUSCULAR HEMOGLOBIN 30.3 PG (27.0-31.0); MEAN CORPUSCULAR HGB CONC 32.9 g/dL (33.0-36.5); MEAN CORPUSCULAR VOLUME 92.2 FL (78-98); MEAN PLATELET VOLUME 8.5 FL (7.4-10.4); MONOCYTES # (AUTO) 1.1 X10'3 (0-0.9); NEUTROPHILS # (AUTO) 10.6 X10'3 (1.8-7.7); NEUTROPHILS % (AUTO) 78.4 % (42-75); PLATELET COUNT 223 X10'3 (140-440); RED BLOOD COUNT 3.37 X10'6 (4.20-5.60); WHITE BLOOD COUNT 13.5 X10'3 (4.5-11.0)
[2022-10-17 07:30] LABS: ALANINE AMINOTRANSFERASE 10 U/L (12-78); ALBUMIN 2.9 G/DL (3.4-5.0); ALBUMIN/GLOBULIN RATIO 0.8 (1.1-1.5); ALKALINE PHOSPHATASE 83 IU/L (46-116); ANION GAP 6 (8-16); ASPARTATE AMINO TRANSFERASE 13 U/L (10-37); BILIRUBIN,TOTAL 0.9 MG/DL (0.1-1.0); BLOOD UREA NITROGEN 34 MG/DL (7-18); BUN/CREATININE RATIO 16.3 (6.6-38.0); CALCIUM 9.1 MG/DL (8.5-10.1); CHLORIDE 99 MMOL/L (99-107); CREATININE 2.09 MG/DL (0.40-0.90); GLUCOSE 192 MG/DL (70-104); MAGNESIUM 1.6 MG/DL (1.5-2.4); SODIUM 137 MMOL/L (135-145); TOTAL CARBON DIOXIDE 31.8 MMOL/L (24-32); TOTAL PROTEIN 6.7 G/DL (6.4-8.2); eGFR 22 ML/MIN
[2022-10-17] MEDS: K and/or MAG REPLACEMENT MC SCH ×2 (07:47→19:23)
[2022-10-17] MEDS: ketorolac trometh. 30mg/ml inj. IV PRN ×2 (07:55→16:11)
[2022-10-17] MEDS: CefTRIAXone/D5W-Rocephin 1gm 50 ML IV SCH (07:56)
[2022-10-17] MEDS: furosemide 20 MG/2 ML vial IV SCH (07:56)
[2022-10-17] MEDS: azithromycin 250mg tablet PO SCH (07:57)
--- NOTE | 2022-10-17 08:57 | NUR ---
Pt given breakfast. 90% of breakfast given. will continue to monitor.
--- NOTE | 2022-10-17 12:18 | NUR ---
Page Sent PAGER ID: [phone] MESSAGE: Dr Meade med rec for Prashant Henderson ER rm 9, med rec done, pts diabetic do you want protocol. Azalea AVALOS
[2022-10-17] MEDS: mag hydrox/Alum hydrox/simeth 30ml oral suspension PO PRN ×2 (14:58→23:29)
--- NOTE | 2022-10-17 15:01 | NUR ---
promotional table spacer promotional table spacer Page Sent promotional table spacer PAGER ID: [phone] MESSAGE: Prashant Brewster in ER rm 9 is in afib rvr at rate of 120s, also med rec is done and pt is diabetic. Do you want coverage? Azalea AVALOS
[2022-10-17] MEDS ORDERED: diltiazem 5mg/ml 5ml inj. IV ONE (15:15)
[2022-10-17] MEDS ORDERED: temazepam 15mg capsule PO PRN (15:35)
[2022-10-17] MEDS: cyclobenzaprine 10mg tablet PO SCH ×2 (16:28→23:29)
--- NOTE | 2022-10-17 17:46 | NUR ---
PAGER ID: [phone] MESSAGE: For Prashant Henderson in ER bed 9, are you going to order coverage for blood sugar?
[2022-10-17] MEDS ORDERED: glucagon, human recombinant 1mg kit SUBCUT PRN (17:55)
[2022-10-17] MEDS ORDERED: dextrose 50%-water 50ml dispensing syringe IV PRN ×2 (17:55)
[2022-10-17] MEDS ORDERED: MESSAGE TO PHARMACY PO ONE (17:55)
[2022-10-17] MEDS ORDERED: DEXTROSE 15 GM of carb/4 tabs (each vial/BOTTLE has 4 tablets) PO PRN ×2 (17:55)
[2022-10-17] MEDS ORDERED: PERFLUTREN PROTEIN-A MICROSPHR (Optison) 0.22 MG/ML 3ML VIAL IV ONE (18:00)
[2022-10-17] MEDS: diltiazem 30mg tablet PO SCH (19:26)
[2022-10-17] MEDS: insulin Lispro (HumaLOG) vial - multi-dose SQ SCH (19:57)
--- NOTE | 2022-10-17 20:01 | NUR ---
ASSISTING KAITLYNN HOBBS WITH PT CARE, PT IS RESTING QUIETLY ON HOSPITAL BED, NO ROOMS AVAILABLE UPSTAIRS, PT TO REMAIN IN ER, PT IS GCS 15 ALERT AND ORIENTED, RESP EVEN AND UNLABORED, SKIN P/W/D, AFIB ON THE MONITOR 115 TO 130S,
[2022-10-17] MEDS: insulin glargine (Lantus) pen - multi-dose SQ SCH (20:45)
[2022-10-18] MEDS: ketorolac trometh. 30mg/ml inj. IV PRN ×2 (01:21→19:28)
[2022-10-18 01:31] VITALS: BP 117/49
[2022-10-18] MEDS: diltiazem 30mg tablet PO SCH ×4 (01:31→19:27)
[2022-10-18] MEDS: albuterol 2.5 MG/3 ML nebule NEB PRN ×2 (03:12→19:38)
[2022-10-18 06:00] VITALS: BP 82/34
[2022-10-18 06:27] LABS: BASOPHILS # (AUTO) 0.1 X10'3 (0-0.2); BASOPHILS % (AUTO) 0.7 % (0-1); EOSINOPHILS # (AUTO) 0.4 X10'3 (0-0.9); EOSINOPHILS % (AUTO) 2.8 % (0-6); HEMATOCRIT 33.3 % (35.0-45.0); HEMOGLOBIN 11.2 g/dl (12.0-16.0); LYMPHOCYTES # (AUTO) 1.6 X10'3 (1.1-4.8); LYMPHOCYTES % (AUTO) 12.3 % (21-51); MEAN CORPUSCULAR HEMOGLOBIN 30.8 PG (27.0-31.0); MEAN CORPUSCULAR HGB CONC 33.8 g/dL (33.0-36.5); MEAN CORPUSCULAR VOLUME 91.1 FL (78-98); MEAN PLATELET VOLUME 8.7 FL (7.4-10.4); MONOCYTES # (AUTO) 0.9 X10'3 (0-0.9); NEUTROPHILS # (AUTO) 9.9 X10'3 (1.8-7.7); NEUTROPHILS % (AUTO) 77.2 % (42-75); PLATELET COUNT 251 X10'3 (140-440); RED BLOOD COUNT 3.65 X10'6 (4.20-5.60); RED CELL DISTRIBUTION WIDTH 13.9 % (11.5-14.5); WHITE BLOOD COUNT 12.8 X10'3 (4.5-11.0)
--- NOTE | 2022-10-18 06:34 | NUR ---
Problems reprioritized. Patient report given, questions answered & plan of care reviewed with Cherry AVALOS.
[2022-10-18 06:57] LABS: ALANINE AMINOTRANSFERASE 13 U/L (12-78); ALBUMIN 2.7 G/DL (3.4-5.0); ALBUMIN/GLOBULIN RATIO 0.7 (1.1-1.5); ALKALINE PHOSPHATASE 88 IU/L (46-116); ANION GAP 11 (8-16); ASPARTATE AMINO TRANSFERASE 15 U/L (10-37); BILIRUBIN,TOTAL 0.5 MG/DL (0.1-1.0); BLOOD UREA NITROGEN 50 MG/DL (7-18); BUN/CREATININE RATIO 19.8 (6.6-38.0); CALCIUM 9.1 MG/DL (8.5-10.1); CHLORIDE 98 MMOL/L (99-107); CREATININE 2.52 MG/DL (0.40-0.90); GLUCOSE 230 MG/DL (70-104); POTASSIUM 4.6 MMOL/L (3.5-5.1); SODIUM 137 MMOL/L (135-145); TOTAL CARBON DIOXIDE 28.5 MMOL/L (24-32); TOTAL PROTEIN 6.6 G/DL (6.4-8.2); eGFR 18 ML/MIN
[2022-10-18 07:00] VITALS: BP 113/59
[2022-10-18] MEDS: levoTHYROXINE 100mcg tablet PO SCH (07:00)
--- NOTE | 2022-10-18 07:26 | NUR ---
Diabetes consult: Pt w/ hx of DM A1c 7 per EMR. Well controlled and appropriate for age. DM ed not indicated at this time. Addendum: 10/18/22 at [address] Amended: Links added.
[2022-10-18] MEDS: ipratropium/albuterol 3ml nebule IH SCH ×2 (07:57→16:05)
[2022-10-18] MEDS ORDERED: warfarin 4mg tablet PO SCH (08:00)
[2022-10-18] MEDS ORDERED: furosemide 20 MG/2 ML vial IV SCH (08:00)
[2022-10-18] MEDS ORDERED: pantoprazole 40mg Tablet.DR PO SCH (08:00)
[2022-10-18] MEDS: K and/or MAG REPLACEMENT MC SCH ×2 (08:00→19:35)
[2022-10-18] MEDS: cyclobenzaprine 10mg tablet PO SCH ×3 (08:07→23:55)
[2022-10-18] MEDS: azithromycin 250mg tablet PO SCH (08:07)
[2022-10-18] MEDS: CefTRIAXone/D5W-Rocephin 1gm 50 ML IV SCH (08:08)
[2022-10-18] MEDS: duloxetine 30mg CAPSULE.DR PO SCH (08:26)
[2022-10-18] MEDS ORDERED: normal saline 500ml IV soln 500 ML IV ONE (08:35)
[2022-10-18] MEDS: acetaminophen 325mg tablet PO PRN ×2 (09:52→23:43)
[2022-10-18] MEDS: insulin Lispro (HumaLOG) vial - multi-dose SQ SCH (10:46)
[2022-10-18 11:39] VITALS: BP 105/55
[2022-10-18 12:23] LABS: OCCULT BLOOD STOOL POSITIVE (Neg)
[2022-10-18 18:00] VITALS: BP 110/36
[2022-10-18] MEDS: pantoprazole 40mg IV 40 MG in normal saline 100ml IV soln 100 ML IV SCH (19:29)
[2022-10-18] MEDS: insulin glargine (Lantus) pen - multi-dose SQ SCH (21:00)
[2022-10-18] MEDS ORDERED: warfarin 4mg tablet PO ONE (21:00)
[2022-10-18 22:00] VITALS: BP 102/48
--- NOTE | 2022-10-18 23:27 | NUR ---
pt strongly refused her 2100 lantus. said she was okay with b/s of 143. will continue to monitor
[2022-10-19] MEDS: diltiazem 30mg tablet PO SCH ×5 (01:33→17:29)
[2022-10-19] MEDS: ketorolac trometh. 30mg/ml inj. IV PRN ×3 (01:34→19:20)
[2022-10-19 02:23] VITALS: BP 104/44
[2022-10-19] MEDS: albuterol 2.5 MG/3 ML nebule NEB PRN (02:27)
[2022-10-19] MEDS: normal saline 1000ml 1,000 ML IV SCH ×3 (04:40→22:56)
[2022-10-19] MEDS: acetaminophen 325mg tablet PO PRN (06:02)
--- NOTE | 2022-10-19 06:15 | NUR ---
Patient in room PCU 3015. I have received report from Paula AVALOS and had the opportunity to ask questions and assume patient care.Will follow care of pt with Ayush HOBBS. Bedside report completed. Pt sleeping, Call light in reach. Addendum: 10/19/22 at 0642 by Vania Olivier RN Amended: Links added.
--- NOTE | 2022-10-19 06:36 | NUR ---
Problems reprioritized. Patient report given, questions answered & plan of care reviewed with Nai AVALOS.
--- NOTE | 2022-10-19 06:47 | NUR ---
Patient in room U 3015. I have received report from Jaswinder AVALOS and had the opportunity to ask questions and assume patient care. Patient is L side lying. Patient has Lab drawing blood currently. Call light within reach. Bed in lowest position. Addendum: 10/19/22 at 0649 by Francisco Ulloa LVN Amended: Links added. Addendum: 10/19/22 at 0652 by Francisco Ulloa LVN Bed side report given.
[2022-10-19 07:00] VITALS: BP 125/33
[2022-10-19] MEDS: levoTHYROXINE 100mcg tablet PO SCH (07:10)
[2022-10-19] MEDS: cyclobenzaprine 10mg tablet PO SCH ×2 (07:10→15:32)
[2022-10-19] MEDS: pantoprazole 40mg IV 40 MG in normal saline 100ml IV soln 100 ML IV SCH ×2 (07:18→19:22)
[2022-10-19] MEDS: CefTRIAXone/D5W-Rocephin 1gm 50 ML IV SCH (07:18)
[2022-10-19] MEDS: ipratropium/albuterol 3ml nebule IH SCH ×3 (07:30→21:01)
[2022-10-19 07:39] LABS: BASOPHILS # (AUTO) 0.1 X10'3 (0-0.2); BASOPHILS % (AUTO) 0.6 % (0-1); EOSINOPHILS # (AUTO) 0.4 X10'3 (0-0.9); EOSINOPHILS % (AUTO) 4.4 % (0-6); HEMATOCRIT 27.9 % (35.0-45.0); HEMOGLOBIN 9.4 g/dl (12.0-16.0); LYMPHOCYTES # (AUTO) 0.9 X10'3 (1.1-4.8); LYMPHOCYTES % (AUTO) 10.2 % (21-51); MEAN CORPUSCULAR HEMOGLOBIN 30.9 PG (27.0-31.0); MEAN CORPUSCULAR HGB CONC 33.5 g/dL (33.0-36.5); MEAN CORPUSCULAR VOLUME 92.2 FL (78-98); MEAN PLATELET VOLUME 8.9 FL (7.4-10.4); MONOCYTES # (AUTO) 0.6 X10'3 (0-0.9); MONOCYTES % (AUTO) 7.3 % (2-12); NEUTROPHILS # (AUTO) 6.5 X10'3 (1.8-7.7); NEUTROPHILS % (AUTO) 77.5 % (42-75); PLATELET COUNT 232 X10'3 (140-440); RED BLOOD COUNT 3.03 X10'6 (4.20-5.60); WHITE BLOOD COUNT 8.4 X10'3 (4.5-11.0)
[2022-10-19 07:43] LABS: ALANINE AMINOTRANSFERASE 10 U/L (12-78); ALBUMIN 2.5 G/DL (3.4-5.0); ALBUMIN/GLOBULIN RATIO 0.8 (1.1-1.5); ALKALINE PHOSPHATASE 70 IU/L (46-116); ANION GAP 8 (8-16); ASPARTATE AMINO TRANSFERASE 12 U/L (10-37); BILIRUBIN,TOTAL 0.4 MG/DL (0.1-1.0); BLOOD UREA NITROGEN 58 MG/DL (7-18); BUN/CREATININE RATIO 19.4 (6.6-38.0); CALCIUM 8.5 MG/DL (8.5-10.1); CHLORIDE 101 MMOL/L (99-107); CREATININE 2.99 MG/DL (0.40-0.90); GLUCOSE 134 MG/DL (70-104); MAGNESIUM 1.9 MG/DL (1.5-2.4); POTASSIUM 4.7 MMOL/L (3.5-5.1); SODIUM 136 MMOL/L (135-145); TOTAL CARBON DIOXIDE 26.7 MMOL/L (24-32); TOTAL PROTEIN 5.7 G/DL (6.4-8.2); eGFR 15 ML/MIN
[2022-10-19] MEDS: K and/or MAG REPLACEMENT MC SCH ×2 (08:00→19:07)
[2022-10-19] MEDS: azithromycin 250mg tablet PO SCH (08:26)
[2022-10-19] MEDS: duloxetine 30mg CAPSULE.DR PO SCH (08:28)
--- NOTE | 2022-10-19 08:51 | NUR ---
Dr. Hedrick Notified via PAGER ID: [phone] MESSAGE: [id number] Brown- Pt c/o 09/04 pain to neck. Tylenol and Toradol administered. Ineffective. Hx JOHN +CKD r/t excessive diuressing . estimated gfr 15. BUN 58, Creat 2.99. IV NS 100 ml/hr. How would you like to help her with decreasing her pain? Addendum: 10/19/22 at 1010 by Francisco Ulloa LVN Pt sleeping. no distress noted. call light within reach
--- NOTE | 2022-10-19 11:03 | NUR ---
Dr. Hedrick Notified via pager. PAGER ID: [phone] MESSAGE: [id number] [place]. Pt administered Cardizem 30mg this morning with BP 125/33 HR102. Current V/S 98/34 HR 76 at 1100hrs v/s. She is due for another Cardizem 30mg at 1400hrs. Can you review and let me know your thoughts? Pranav Ulloa LVN
--- NOTE | 2022-10-19 11:13 | NUR ---
pt rates pain 11/04, refuses norco at this time.
[2022-10-19] MEDS: HYDROcodone/acetaminophen 5mg/325mg tablet PO PRN ×2 (11:28→20:43)
[2022-10-19 12:06] VITALS: BP 98/34
[2022-10-19] MEDS ORDERED: phytonadione inj. 3 MG in normal saline 100ml IV soln 100 ML IV ONE (12:40)
[2022-10-19] MEDS: insulin Lispro (HumaLOG) vial - multi-dose SQ SCH (13:06)
[2022-10-19 15:34] VITALS: BP 90/40
--- NOTE | 2022-10-19 17:17 | NUR ---
Dr. Hedrick notified via pager update on patient SBP. PAGER ID: [phone] MESSAGE: [id number]- [place]. Pt SBP continues to trend low since 0800hrs admin of Cardizem 30mg. 1400hrs cardizem dose held due to low BP. Last BP 1700hrs 100/38.
[2022-10-19 18:00] VITALS: BP 100/38
--- NOTE | 2022-10-19 18:09 | NUR ---
I have reviewed and agree with all interventions, assessments performed and documented by Francisco HOBBS.
--- NOTE | 2022-10-19 18:12 | NUR ---
Problems reprioritized. Patient report given, questions answered & plan of care reviewed with Ely AVALOS. Bedside report given. Pt comfortable. No distress. Call light within reach. Addendum: 10/19/22 at 1814 by Francisco Ulloa LVN Amended: Links added.
--- NOTE | 2022-10-19 18:43 | NUR ---
Problems reprioritized. Patient report given, questions answered & plan of care reviewed with Guadalupe AVALOS. Ely AVALOS sent to . Addendum: 10/19/22 at 1844 by Vania Olivier RN Amended: Links added.
[2022-10-19] MEDS: insulin glargine (Lantus) pen - multi-dose SQ SCH (21:00)
[2022-10-19] MEDS ORDERED: warfarin 4mg tablet PO ONE (21:00)
[2022-10-19 22:00] VITALS: BP 106/40
[2022-10-20] MEDS: cyclobenzaprine 10mg tablet PO SCH ×3 (00:51→16:39)
[2022-10-20] MEDS: ipratropium/albuterol 3ml nebule IH SCH ×4 (03:03→21:05)
--- NOTE | 2022-10-20 06:08 | NUR ---
Patient in room PCU 3015. I have received report from Guadalupe AVALOS and had the opportunity to ask questions and assume patient care. Will follow care of pt with Francisco HOBBS.Bedside report completed. Pt awake and sitting on side of bed. Call light in reach. Addendum: 10/20/22 at 0609 by Vania Olivier RN Amended: Links added.
--- NOTE | 2022-10-20 06:36 | NUR ---
Patient in room PCU 3015. I have received report from Esme AVALOS and had the opportunity to ask questions and assume patient care. Bedside report given. Call light within reach. Bed in lowest position. Pt NPO r/t EGD 10/20
[2022-10-20] MEDS: levoTHYROXINE 100mcg tablet PO SCH (07:08)
[2022-10-20] MEDS: HYDROcodone/acetaminophen 5mg/325mg tablet PO PRN ×2 (07:09→14:43)
[2022-10-20] MEDS: pantoprazole 40mg IV 40 MG in normal saline 100ml IV soln 100 ML IV SCH (07:13)
[2022-10-20] MEDS: normal saline 1000ml 1,000 ML IV SCH ×3 (07:13→22:11)
[2022-10-20] MEDS: CefTRIAXone/D5W-Rocephin 1gm 50 ML IV SCH (07:13)
[2022-10-20 07:31] VITALS: BP 116/43
[2022-10-20] MEDS: K and/or MAG REPLACEMENT MC SCH ×2 (08:00→18:48)
[2022-10-20] MEDS: diltiazem 30mg tablet PO SCH ×3 (08:12→22:23)
[2022-10-20] MEDS: azithromycin 250mg tablet PO SCH (08:12)
[2022-10-20] MEDS: duloxetine 30mg CAPSULE.DR PO SCH (08:12)
[2022-10-20 08:14] LABS: BASOPHILS % (AUTO) 0.5 % (0-1); EOSINOPHILS # (AUTO) 0.3 X10'3 (0-0.9); EOSINOPHILS % (AUTO) 5.2 % (0-6); HEMATOCRIT 28.7 % (35.0-45.0); HEMOGLOBIN 9.5 g/dl (12.0-16.0); LYMPHOCYTES # (AUTO) 0.7 X10'3 (1.1-4.8); LYMPHOCYTES % (AUTO) 10.7 % (21-51); MEAN PLATELET VOLUME 8.5 FL (7.4-10.4); MONOCYTES # (AUTO) 0.6 X10'3 (0-0.9); MONOCYTES % (AUTO) 9.1 % (2-12); NEUTROPHILS # (AUTO) 4.9 X10'3 (1.8-7.7); NEUTROPHILS % (AUTO) 74.5 % (42-75); PLATELET COUNT 233 X10'3 (140-440); RED BLOOD COUNT 3.05 X10'6 (4.20-5.60); RED CELL DISTRIBUTION WIDTH 14.1 % (11.5-14.5); WHITE BLOOD COUNT 6.6 X10'3 (4.5-11.0)
[2022-10-20 08:16] LABS: APTT 38 SECONDS (22-32)
[2022-10-20 08:25] LABS: ALANINE AMINOTRANSFERASE 14 U/L (12-78); ALBUMIN 2.5 G/DL (3.4-5.0); ALBUMIN/GLOBULIN RATIO 0.8 (1.1-1.5); ALKALINE PHOSPHATASE 70 IU/L (46-116); ANION GAP 8 (8-16); ASPARTATE AMINO TRANSFERASE 15 U/L (10-37); BILIRUBIN,TOTAL 0.3 MG/DL (0.1-1.0); BLOOD UREA NITROGEN 53 MG/DL (7-18); BUN/CREATININE RATIO 17.7 (6.6-38.0); CALCIUM 8.1 MG/DL (8.5-10.1); CHLORIDE 103 MMOL/L (99-107); GLUCOSE 124 MG/DL (70-104); MAGNESIUM 1.8 MG/DL (1.5-2.4); SODIUM 136 MMOL/L (135-145); TOTAL CARBON DIOXIDE 24.7 MMOL/L (24-32); TOTAL PROTEIN 5.7 G/DL (6.4-8.2); eGFR 15 ML/MIN
--- NOTE | 2022-10-20 08:31 | NUR ---
Dr. Hedrick Notified of new labs results for EGD procedure. PAGER ID: [phone] MESSAGE: [phone] [facility]- CBC and PTT/INR lab results are ready for review. Ca 8.1 this AM. Pranav Ulloa LVN
[2022-10-20] MEDS ORDERED: normal saline 500ml IV soln 500 ML IV ONE (08:35)
[2022-10-20] MEDS: insulin Lispro (HumaLOG) vial - multi-dose SQ SCH (10:34)
[2022-10-20 11:50] VITALS: BP 108/52
--- NOTE | 2022-10-20 12:03 | NUR ---
Pt requesting breathing tx. RT notified via paging system
[2022-10-20] MEDS: albuterol 2.5 MG/3 ML nebule NEB PRN (12:12)
--- NOTE | 2022-10-20 14:00 | NUR ---
Pharmacovigilance Specialist educated patient on clean catch urine for UA. She verbalized understanding. Pharmacovigilance Specialist obtained urine specimen. Urine transported to LAB.
[2022-10-20 14:10] LABS: CLARITY,URINE SLIGHTLY CLOUDY (Clear); COLOR,URINE YELLOW (Yellow); GLUCOSE, URINE NEGATIVE (Neg); KETONES,URINE NEGATIVE (Neg); LEUKOCYTE ESTERASE ,URINE SMALL (Neg); NITRITES, URINE NEGATIVE (Neg); OCCULT BLOOD,URINE NEGATIVE (Neg); PROTEIN,URINE NEGATIVE (Neg); UROBILINOGEN,URINE 0.2 E.U/dL (0.2-1.0)
--- NOTE | 2022-10-20 14:12 | NUR ---
Pt arrived from CT procedure. Patient requesting pain medication r/t neck. No breathing distress.
[2022-10-20 14:15] LABS: UA COLLECTION TYPE CLN CATCH MIDSTREAM
[2022-10-20 14:16] LABS: BACTERIA,URINE 1+ /HPF (Neg); RBC,URINE NONE SEEN /HPF (0-2)
[2022-10-20 14:17] LABS: MUCUS STRANDS NONE SEEN /LPF (Neg); SQUAMOUS EPITHELIAL CELL,UR MANY /LPF (FEW)
[2022-10-20 14:18] LABS: WBC CLUMPS,URINE FEW /HPF (NEGATIVE)
[2022-10-20 14:24] LABS: TOTAL PROTEIN,URINE RANDOM 36.1 MG/DL
[2022-10-20 15:06] LABS: UA EOSINOPHILS NO EOS /HPF
[2022-10-20 16:30] VITALS: BP 120/70
--- NOTE | 2022-10-20 17:04 | NUR ---
Land Leasing Information Clerk notified Dr. Hedrick with following pager message. MESSAGE: [id number] Brown Pt continues with inspiratory crackles all reed. Pt is fluid positive + 1795ml. L. Ulloa SECURITIES ATTORNEY
[2022-10-20 18:00] VITALS: BP 101/41
--- NOTE | 2022-10-20 18:32 | NUR ---
I have reviewed and agree with all interventions, assessments performed and documented by Francisco HOBBS. Addendum: 10/20/22 at 1833 by Vania Olivier RN Amended: Links added.
--- NOTE | 2022-10-20 18:34 | NUR ---
Problems reprioritized. Patient report given, questions answered & plan of care reviewed with Esme AVALOS. Bedside report given. Pt comfortable. No distress noted Addendum: 10/20/22 at 1834 by Francisco Ulloa LVN Amended: Links added.
[2022-10-20] MEDS: insulin glargine (Lantus) pen - multi-dose SQ SCH (21:00)
[2022-10-21] VITALS (13 sets, daily range): BP systolic 100–126; BP diastolic 34–100
[2022-10-21] MEDS: cyclobenzaprine 10mg tablet PO SCH ×4 (00:04→23:07)
[2022-10-21] MEDS: diltiazem 30mg tablet PO SCH ×4 (02:01→22:27)
[2022-10-21] MEDS: ipratropium/albuterol 3ml nebule IH SCH ×4 (02:56→20:32)
--- NOTE | 2022-10-21 06:16 | NUR ---
Patient in room PCU 3015. I have received report from Guadalupe AVALOS and had the opportunity to ask questions and assume patient care. Will follow care of Pt with Francisco HOBBS Addendum: 10/21/22 at 0617 by Vania Olivier RN Amended: Links added.
--- NOTE | 2022-10-21 06:21 | NUR ---
Patient in room PCU 3015. I have received report from Esme AVALOS and had the opportunity to ask questions and assume patient care. Pt has call light within reach. Pt requesting breathing tx. RT notified. Addendum: 10/21/22 at 0622 by Francisco Ulloa LVN Amended: Links added.
[2022-10-21 07:05] LABS: BASOPHILS % (AUTO) 0.2 % (0-1); EOSINOPHILS # (AUTO) 0.4 X10'3 (0-0.9); EOSINOPHILS % (AUTO) 4.5 % (0-6); HEMATOCRIT 29.8 % (35.0-45.0); HEMOGLOBIN 9.9 g/dl (12.0-16.0); LYMPHOCYTES # (AUTO) 0.8 X10'3 (1.1-4.8); LYMPHOCYTES % (AUTO) 8.5 % (21-51); MEAN CORPUSCULAR HEMOGLOBIN 31.3 PG (27.0-31.0); MEAN CORPUSCULAR HGB CONC 33.2 g/dL (33.0-36.5); MEAN CORPUSCULAR VOLUME 94.3 FL (78-98); MEAN PLATELET VOLUME 8.7 FL (7.4-10.4); MONOCYTES # (AUTO) 0.9 X10'3 (0-0.9); MONOCYTES % (AUTO) 9.4 % (2-12); NEUTROPHILS # (AUTO) 7.1 X10'3 (1.8-7.7); NEUTROPHILS % (AUTO) 77.4 % (42-75); PLATELET COUNT 267 X10'3 (140-440); RED BLOOD COUNT 3.16 X10'6 (4.20-5.60); RED CELL DISTRIBUTION WIDTH 14.4 % (11.5-14.5); WHITE BLOOD COUNT 9.1 X10'3 (4.5-11.0)
[2022-10-21] MEDS: levoTHYROXINE 100mcg tablet PO SCH (07:31)
[2022-10-21] MEDS: K and/or MAG REPLACEMENT MC SCH ×2 (08:00→19:25)
[2022-10-21 08:13] LABS: ALANINE AMINOTRANSFERASE 13 U/L (12-78); ALBUMIN 2.8 G/DL (3.4-5.0); ALBUMIN/GLOBULIN RATIO 0.8 (1.1-1.5); ALKALINE PHOSPHATASE 80 IU/L (46-116); ANION GAP 11 (8-16); ASPARTATE AMINO TRANSFERASE 16 U/L (10-37); BILIRUBIN,TOTAL 0.3 MG/DL (0.1-1.0); BLOOD UREA NITROGEN 52 MG/DL (7-18); BUN/CREATININE RATIO 18.1 (6.6-38.0); CALCIUM 8.6 MG/DL (8.5-10.1); CHLORIDE 102 MMOL/L (99-107); CREATININE 2.88 MG/DL (0.40-0.90); GLUCOSE 114 MG/DL (70-104); POTASSIUM 4.8 MMOL/L (3.5-5.1); SODIUM 135 MMOL/L (135-145); TOTAL CARBON DIOXIDE 22.1 MMOL/L (24-32); TOTAL PROTEIN 6.2 G/DL (6.4-8.2); eGFR 15 ML/MIN
[2022-10-21] MEDS: CefTRIAXone/D5W-Rocephin 1gm 50 ML IV SCH (08:27)
[2022-10-21] MEDS: azithromycin 250mg tablet PO SCH (08:32)
[2022-10-21] MEDS: duloxetine 30mg CAPSULE.DR PO SCH (08:34)
[2022-10-21] MEDS: HYDROcodone/acetaminophen 5mg/325mg tablet PO PRN ×2 (08:34→23:14)
--- NOTE | 2022-10-21 11:12 | NUR ---
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 Pt PO remains poor mostly 25% vs refusals initial renal/carb controlled meals not meeting needs. Noted documented as refused this AM though actually NPO pending EGD for potential GIB concern per EMR. Pt seen by RD at bedside; pt reports appetite marginal admits lower than baseline though has had ONS at home requests chocolate Ensure this admit. MD notified recommend Chocolate Ensure Enlive TIDWM to assist meeting nutrition needs once PO diet advances. Pt electrolytes remain WNL w/ serum Na 135mmol/L this AM receiving NS at 75ml/hr; would benefit from minimum of renal diet restriction removal once PO diet to return given PO trends/labs if physician agreeable. LBM 10/18. Will monitor for further PO trends and nutrition intervention needs this admit. Rec: 1. advance to regular diet as medically indicated; consider carb controlled IF PO intake improves; encourage PO 2. Chocolate Ensure Enlive TIDWM; pending physician verification in EMR 3. routine bowel care 4. weekly wts Addendum: 10/21/22 at [address] Amended: Links added.
--- NOTE | 2022-10-21 11:21 | NUR ---
Elevated HOB, provided teaching to patient effective airway management and elevating HOB, she verbalized understanding. Patient able to tolerate 4.5LPM semi-fowlers. Addendum: 10/21/22 at 1125 by Francisco Ulloa LVN Amended: Links added.
[2022-10-21] MEDS: magnesium hydroxide 30ml (MOM) UD suspension PO PRN (12:21)
--- NOTE | 2022-10-21 14:10 | NUR ---
Pt down to GI lab.
[2022-10-21] MEDS ORDERED: FENTANYL CITRATE/PF 50 MCG/1 ML VIAL ONE (14:16)
[2022-10-21] MEDS ORDERED: diphenhydrAMINE 50 mg/ml inj ONE (14:17)
[2022-10-21] MEDS ORDERED: MIDAZolam 1 MG/ML 5ML VIAL ONE (14:17)
[2022-10-21] MEDS ORDERED: LIDOcaine Viscous 15ml cup ONE (14:17)
--- NOTE | 2022-10-21 16:12 | NUR ---
Patient in EGD procedure. Unavailable for routine Vital signs Addendum: 10/21/22 at 1612 by Francisco Ulloa LVN Amended: Links added.
--- NOTE | 2022-10-21 16:20 | NUR ---
Patient arrived from EGD procedure. Patient on bedside commode. Patient did not void. Assisted to lying in hospital bed, Elevated HOB, pt currently on 4.5 LPM via nasal cannula. V/S q15min per report from Gege AVALOS.
--- NOTE | 2022-10-21 17:45 | NUR ---
I have reviewed and agree with all interventions, assessments performed and documented by Francisco HOBBS. Addendum: 10/21/22 at 1746 by Vania Olivier RN Amended: Links added.
--- NOTE | 2022-10-21 18:26 | NUR ---
Problems reprioritized. Patient report given, questions answered & plan of care reviewed with JONATHAN AVALOS. Bedside report given. Patient sitting side of bed. O2 @ 3LPM via nasal cannula. Patient talking to family via cellphone. No distress noted. Call light within reach.
[2022-10-21] MEDS: insulin Lispro (HumaLOG) vial - multi-dose SQ SCH (18:51)
[2022-10-21] MEDS: insulin glargine (Lantus) pen - multi-dose SQ SCH (21:00)
--- NOTE | 2022-10-21 22:57 | NUR ---
Pt 2100 BS was 52, now is from level 2 dropped to off the protocol, do not do Lantus at 2100 PM.
--- NOTE | 2022-10-22 00:32 | NUR ---
Given glucose 4 tablets and rechecked BS it was 130 at 23:50 PM
[2022-10-22 02:00] VITALS: BP 101/50
[2022-10-22] MEDS: ipratropium/albuterol 3ml nebule IH SCH ×4 (02:32→19:53)
[2022-10-22] MEDS: diltiazem 30mg tablet PO SCH ×4 (02:48→20:00)
[2022-10-22 07:00] VITALS: BP_SYST 124; BP_SYST 134; BP_DIAS 40; BP_DIAS 47
[2022-10-22 07:19] LABS: BASOPHILS % (AUTO) 0.4 % (0-1); EOSINOPHILS # (AUTO) 0.5 X10'3 (0-0.9); EOSINOPHILS % (AUTO) 5.5 % (0-6); HEMATOCRIT 29.4 % (35.0-45.0); HEMOGLOBIN 9.6 g/dl (12.0-16.0); LYMPHOCYTES % (AUTO) 11.6 % (21-51); MEAN CORPUSCULAR HEMOGLOBIN 30.8 PG (27.0-31.0); MEAN CORPUSCULAR HGB CONC 32.7 g/dL (33.0-36.5); MEAN CORPUSCULAR VOLUME 94.3 FL (78-98); MEAN PLATELET VOLUME 8.3 FL (7.4-10.4); MONOCYTES # (AUTO) 0.9 X10'3 (0-0.9); NEUTROPHILS # (AUTO) 6.3 X10'3 (1.8-7.7); NEUTROPHILS % (AUTO) 72.5 % (42-75); PLATELET COUNT 277 X10'3 (140-440); RED BLOOD COUNT 3.12 X10'6 (4.20-5.60); RED CELL DISTRIBUTION WIDTH 14.6 % (11.5-14.5); WHITE BLOOD COUNT 8.8 X10'3 (4.5-11.0)
[2022-10-22 07:57] LABS: ALANINE AMINOTRANSFERASE 14 U/L (12-78); ALBUMIN 2.8 G/DL (3.4-5.0); ALBUMIN/GLOBULIN RATIO 0.8 (1.1-1.5); ALKALINE PHOSPHATASE 77 IU/L (46-116); ANION GAP 12 (8-16); ASPARTATE AMINO TRANSFERASE 12 U/L (10-37); BILIRUBIN,TOTAL 0.3 MG/DL (0.1-1.0); BLOOD UREA NITROGEN 53 MG/DL (7-18); BUN/CREATININE RATIO 18.5 (6.6-38.0); CALCIUM 8.9 MG/DL (8.5-10.1); CHLORIDE 102 MMOL/L (99-107); CREATININE 2.86 MG/DL (0.40-0.90); GLUCOSE 118 MG/DL (70-104); PHOSPHORUS 4.2 MG/DL (2.3-4.5); SODIUM 137 MMOL/L (135-145); TOTAL CARBON DIOXIDE 22.7 MMOL/L (24-32); TOTAL PROTEIN 6.3 G/DL (6.4-8.2); eGFR 16 ML/MIN
[2022-10-22] MEDS: K and/or MAG REPLACEMENT MC SCH ×2 (08:00→19:26)
[2022-10-22] MEDS: duloxetine 30mg CAPSULE.DR PO SCH (08:08)
[2022-10-22] MEDS: azithromycin 250mg tablet PO SCH (08:08)
[2022-10-22] MEDS: cyclobenzaprine 10mg tablet PO SCH ×3 (08:08→23:21)
[2022-10-22] MEDS: levoTHYROXINE 100mcg tablet PO SCH (08:08)
[2022-10-22] MEDS: CefTRIAXone/D5W-Rocephin 1gm 50 ML IV SCH (08:08)
[2022-10-22] MEDS: magnesium hydroxide 30ml (MOM) UD suspension PO PRN (08:09)
[2022-10-22 11:00] VITALS: BP 134/47
--- NOTE | 2022-10-22 15:33 | NUR ---
page to respiratory. [id number] [place]. Patient requesting breathing tx for SOB. Petty @ [phone]
[2022-10-22] MEDS: HYDROcodone/acetaminophen 5mg/325mg tablet PO PRN (17:33)
[2022-10-22 18:00] VITALS: BP 112/59
--- NOTE | 2022-10-22 18:26 | NUR ---
Problems reprioritized. Patient report given, questions answered & plan of care reviewed with Oumar AVALOS.
[2022-10-22 19:14] LABS: UREA NITROGEN 24HR,URINE 1.7 GM/24HR (7-20)
--- NOTE | 2022-10-22 20:30 | NUR ---
Hold Cardizem 30 mg related to BP 91/44 per parameter if SBP < 100 mmhg hold it.
[2022-10-22] MEDS: insulin glargine (Lantus) pen - multi-dose SQ SCH (21:00)
[2022-10-22 22:00] VITALS: BP 91/44
--- NOTE | 2022-10-22 23:48 | NUR ---
Pt does not meet protocol to do Lantus.
[2022-10-22] MEDS: albuterol 2.5 MG/3 ML nebule NEB PRN (23:51)
[2022-10-23] VITALS (7 sets, daily range): BP systolic 93–150; BP diastolic 39–88
[2022-10-23] MEDS: diltiazem 30mg tablet PO SCH ×4 (02:45→19:53)
[2022-10-23] MEDS: ipratropium/albuterol 3ml nebule IH SCH ×4 (03:36→21:12)
[2022-10-23 07:04] LABS: ALANINE AMINOTRANSFERASE 12 U/L (12-78); ALBUMIN 2.6 G/DL (3.4-5.0); ALBUMIN/GLOBULIN RATIO 0.8 (1.1-1.5); ALKALINE PHOSPHATASE 77 IU/L (46-116); ANION GAP 8 (8-16); ASPARTATE AMINO TRANSFERASE 14 U/L (10-37); BILIRUBIN,TOTAL 0.3 MG/DL (0.1-1.0); BLOOD UREA NITROGEN 50 MG/DL (7-18); BUN/CREATININE RATIO 17.8 (6.6-38.0); CALCIUM 8.8 MG/DL (8.5-10.1); CHLORIDE 103 MMOL/L (99-107); CREATININE 2.81 MG/DL (0.40-0.90); GLUCOSE 134 MG/DL (70-104); SODIUM 135 MMOL/L (135-145); TOTAL CARBON DIOXIDE 23.7 MMOL/L (24-32); TOTAL PROTEIN 5.9 G/DL (6.4-8.2); eGFR 16 ML/MIN
[2022-10-23] MEDS: cyclobenzaprine 10mg tablet PO SCH ×3 (07:58→23:06)
[2022-10-23] MEDS: levoTHYROXINE 100mcg tablet PO SCH (07:58)
[2022-10-23] MEDS: duloxetine 30mg CAPSULE.DR PO SCH (07:59)
[2022-10-23] MEDS: magnesium hydroxide 30ml (MOM) UD suspension PO PRN (07:59)
[2022-10-23] MEDS: K and/or MAG REPLACEMENT MC SCH ×2 (08:00→18:58)
[2022-10-23] MEDS: CefTRIAXone/D5W-Rocephin 1gm 50 ML IV SCH (08:03)
--- NOTE | 2022-10-23 08:39 | NUR ---
Dr. Silva gave me an order for 40mb PO protonix BID.
[2022-10-23] MEDS ORDERED: mannitol 12.5gm/50mL VIAL IV ONE (09:30)
[2022-10-23] MEDS ORDERED: EPOETIN ALFA-EPBX 20,000 UNIT/ML 1 ML MDV IV ONE (09:30)
[2022-10-23] MEDS ORDERED: normal saline 1000ml 100 ML IV PRN (09:30)
[2022-10-23] MEDS ORDERED: LIDOcaine 1% 30ml preserv. free vial ONE (10:41)
[2022-10-23] MEDS ORDERED: citrate dextrose 1000ml IV sol 1,000 ML IV PRN (11:00)
[2022-10-23 12:52] LABS: HEMATOCRIT 29.1 % (35.0-45.0); HEMOGLOBIN 9.2 g/dl (12.0-16.0); MEAN CORPUSCULAR HEMOGLOBIN 30.3 PG (27.0-31.0); MEAN CORPUSCULAR HGB CONC 31.8 g/dL (33.0-36.5); MEAN CORPUSCULAR VOLUME 95.5 FL (78-98); MEAN PLATELET VOLUME 8.8 FL (7.4-10.4); PLATELET COUNT 270 X10'3 (140-440); RED BLOOD COUNT 3.04 X10'6 (4.20-5.60); RED CELL DISTRIBUTION WIDTH 15.1 % (11.5-14.5); WHITE BLOOD COUNT 7.6 X10'3 (4.5-11.0)
[2022-10-23] MEDS: CITRATE DEXTROSE IV PRN (13:07)
--- NOTE | 2022-10-23 14:11 | NUR ---
Kendra scheduled at 1400, held per dialysis nurse.
[2022-10-23] MEDS: HYDROcodone/acetaminophen 5mg/325mg tablet PO PRN (16:12)
--- NOTE | 2022-10-23 17:11 | NUR ---
Page Sent promotional table spacer PAGER ID: [phone] MESSAGE: [id number] Paulette Henderson. Patient's daughter Earline Lezama would like a doctor to call her and update her on her mother. Petty @[phone] (128 character message out of a maximum of 240)
--- NOTE | 2022-10-23 17:32 | NUR ---
[place] documentation: I have reviewed and agree with all interventions, assessments performed and documented by Kim HOBBS. [place] Medication Administration: For this medication-pass time frame, all medication were reviewed, dispensed, administered and documented per hospital policy by Kim HOBBS.
--- NOTE | 2022-10-23 18:11 | NUR ---
Problems reprioritized. Patient report given, questions answered & plan of care reviewed with Oumar AVALOS.
[2022-10-23] MEDS: pantoprazole 40mg Tablet.DR PO SCH (19:51)
--- NOTE | 2022-10-23 19:53 | NUR ---
Pt BP 93/42 today had dialysis, took 2 L water out of body, per protocol parameter hold Cardizem 30 mg PO at HS tonight.
[2022-10-23] MEDS: insulin glargine (Lantus) pen - multi-dose SQ SCH (21:00)
--- NOTE | 2022-10-23 23:53 | NUR ---
Patient daughter Earline ([phone]) wants MD call her, note in pt front of chart, also will notified AM nurse to let MD know it.
[2022-10-24 02:00] VITALS: BP 107/45
[2022-10-24] MEDS: diltiazem 30mg tablet PO SCH ×4 (02:37→19:35)
[2022-10-24] MEDS: ipratropium/albuterol 3ml nebule IH SCH ×4 (03:05→20:40)
[2022-10-24 06:15] LABS: ALANINE AMINOTRANSFERASE 12 U/L (12-78); ALBUMIN 2.8 G/DL (3.4-5.0); ALBUMIN/GLOBULIN RATIO 0.8 (1.1-1.5); ALKALINE PHOSPHATASE 77 IU/L (46-116); ANION GAP 8 (8-16); ASPARTATE AMINO TRANSFERASE 10 U/L (10-37); BILIRUBIN,TOTAL 0.5 MG/DL (0.1-1.0); BLOOD UREA NITROGEN 20 MG/DL (7-18); BUN/CREATININE RATIO 10.6 (6.6-38.0); CALCIUM 9.1 MG/DL (8.5-10.1); CHLORIDE 102 MMOL/L (99-107); CREATININE 1.89 MG/DL (0.40-0.90); GLUCOSE 114 MG/DL (70-104); POTASSIUM 4.3 MMOL/L (3.5-5.1); SODIUM 137 MMOL/L (135-145); TOTAL CARBON DIOXIDE 26.9 MMOL/L (24-32); TOTAL PROTEIN 6.2 G/DL (6.4-8.2); eGFR 25 ML/MIN
[2022-10-24 07:00] VITALS: BP 147/49
[2022-10-24] MEDS: levoTHYROXINE 100mcg tablet PO SCH (07:48)
[2022-10-24] MEDS: pantoprazole 40mg Tablet.DR PO SCH ×2 (07:48→19:37)
[2022-10-24] MEDS: cyclobenzaprine 10mg tablet PO SCH ×3 (07:48→23:38)
[2022-10-24] MEDS: duloxetine 30mg CAPSULE.DR PO SCH (07:49)
[2022-10-24] MEDS: CefTRIAXone/D5W-Rocephin 1gm 50 ML IV SCH (07:50)
[2022-10-24] MEDS: HYDROcodone/acetaminophen 5mg/325mg tablet PO PRN ×2 (07:57→14:26)
[2022-10-24] MEDS: K and/or MAG REPLACEMENT MC SCH ×2 (08:00→19:08)
[2022-10-24 11:04] VITALS: BP 117/45
[2022-10-24 11:07] LABS: EOSINOPHILS # (AUTO) 0.4 X10'3 (0-0.9); HEMOGLOBIN 10.1 g/dl (12.0-16.0); LYMPHOCYTES # (AUTO) 0.9 X10'3 (1.1-4.8); MEAN PLATELET VOLUME 8.4 FL (7.4-10.4); MONOCYTES # (AUTO) 0.9 X10'3 (0-0.9); WHITE BLOOD COUNT 8.1 X10'3 (4.5-11.0)
[2022-10-24 11:08] LABS: BASOPHILS # (AUTO) 0.6 X10'3 (0-0.2); BASOPHILS % (AUTO) 7.6 % (0-1); EOSINOPHILS % (AUTO) 4.5 % (0-6); HEMATOCRIT 30.7 % (35.0-45.0); LYMPHOCYTES % (AUTO) 10.8 % (21-51); MEAN CORPUSCULAR HEMOGLOBIN 30.9 PG (27.0-31.0); MEAN CORPUSCULAR HGB CONC 32.8 g/dL (33.0-36.5); MEAN CORPUSCULAR VOLUME 94.3 FL (78-98); MONOCYTES % (AUTO) 10.8 % (2-12); NEUTROPHILS # (AUTO) 5.4 X10'3 (1.8-7.7); NEUTROPHILS % (AUTO) 66.3 % (42-75); PLATELET COUNT 303 X10'3 (140-440); RED BLOOD COUNT 3.25 X10'6 (4.20-5.60); RED CELL DISTRIBUTION WIDTH 15.2 % (11.5-14.5)
--- NOTE | 2022-10-24 13:58 | NUR ---
page to respiratory [id number] Paulette Henderson. Patient requesting breathing treatment. Petty @[phone]
[2022-10-24 15:17] VITALS: BP 115/70
[2022-10-24 18:00] VITALS: BP 92/39
--- NOTE | 2022-10-24 18:08 | NUR ---
Problems reprioritized. Patient report given, questions answered & plan of care reviewed with Ely AVALOS.
[2022-10-24] MEDS: insulin glargine (Lantus) pen - multi-dose SQ SCH (21:00)
[2022-10-24 22:00] VITALS: BP 146/68
[2022-10-25] MEDS: diltiazem 30mg tablet PO SCH ×4 (01:51→19:33)
[2022-10-25] MEDS: ipratropium/albuterol 3ml nebule IH SCH ×4 (01:59→20:08)
[2022-10-25 02:00] VITALS: BP 107/49
[2022-10-25] MEDS: HYDROcodone/acetaminophen 5mg/325mg tablet PO PRN ×2 (05:50→17:43)
[2022-10-25 06:00] VITALS: BP 116/50
[2022-10-25 06:03] LABS: ALANINE AMINOTRANSFERASE 8 U/L (12-78); ALBUMIN 2.5 G/DL (3.4-5.0); ALBUMIN/GLOBULIN RATIO 0.8 (1.1-1.5); ALKALINE PHOSPHATASE 66 IU/L (46-116); ASPARTATE AMINO TRANSFERASE 11 U/L (10-37); BILIRUBIN,TOTAL 0.6 MG/DL (0.1-1.0); BLOOD UREA NITROGEN 23 MG/DL (7-18); BUN/CREATININE RATIO 10.2 (6.6-38.0); CALCIUM 8.4 MG/DL (8.5-10.1); CREATININE 2.25 MG/DL (0.40-0.90); GLUCOSE 130 MG/DL (70-104); TOTAL CARBON DIOXIDE 29.4 MMOL/L (24-32); TOTAL PROTEIN 5.7 G/DL (6.4-8.2); eGFR 21 ML/MIN
--- NOTE | 2022-10-25 06:15 | NUR ---
Patient in room PCU 3025. I have received report from Ely AVALOS and had the opportunity to ask questions and assume patient care.
[2022-10-25 06:38] LABS: ANION GAP 9 (8-16); CHLORIDE 101 MMOL/L (99-107); POTASSIUM 4.5 MMOL/L (3.5-5.1); SODIUM 139 MMOL/L (135-145)
[2022-10-25] MEDS: K and/or MAG REPLACEMENT MC SCH ×2 (08:00→19:03)
[2022-10-25] MEDS: pantoprazole 40mg Tablet.DR PO SCH ×2 (08:15→19:34)
[2022-10-25] MEDS: apixaban 2.5mg tablet PO SCH ×2 (08:15→19:34)
[2022-10-25] MEDS: duloxetine 30mg CAPSULE.DR PO SCH (08:15)
[2022-10-25] MEDS: CefTRIAXone/D5W-Rocephin 1gm 50 ML IV SCH (08:15)
[2022-10-25] MEDS: levoTHYROXINE 100mcg tablet PO SCH (08:16)
[2022-10-25] MEDS: cyclobenzaprine 10mg tablet PO SCH ×2 (08:16→16:01)
[2022-10-25 10:16] LABS: HBSAG SCREEN Negative (Negative)
[2022-10-25 11:36] VITALS: BP 109/48
[2022-10-25 15:40] VITALS: BP 105/59
[2022-10-25] MEDS: CITRATE DEXTROSE IV PRN (16:53)
--- NOTE | 2022-10-25 17:04 | NUR ---
PAGER ID: [phone] MESSAGE: [id number] [place]. Pt has a generalized rash and is asymptomatic. Would you like to order a Benadryl? Rubin [phone]
[2022-10-25] MEDS ORDERED: diphenhydrAMINE 25mg capsule PO PRN (17:15)
[2022-10-25 18:00] VITALS: BP 88/48
--- NOTE | 2022-10-25 18:50 | NUR ---
Problems reprioritized. Patient report given, questions answered & plan of care reviewed with Ely AVALOS, patient stable at transfer of care.
[2022-10-25] MEDS: insulin glargine (Lantus) pen - multi-dose SQ SCH (21:00)
--- NOTE | 2022-10-25 21:47 | NUR ---
charting by Paige RAMIREZ reviewed by Ifeoma AVALOS
[2022-10-25 22:44] VITALS: BP 89/56
[2022-10-26] MEDS: cyclobenzaprine 10mg tablet PO SCH ×2 (00:33→07:13)
[2022-10-26 02:00] VITALS: BP 116/49
[2022-10-26] MEDS: diltiazem 30mg tablet PO SCH ×2 (02:12→07:13)
[2022-10-26] MEDS: ipratropium/albuterol 3ml nebule IH SCH ×2 (03:48→08:52)
--- NOTE | 2022-10-26 06:16 | NUR ---
Patient in room PCU 3025. I have received report from Ely AVALOS and had the opportunity to ask questions and assume patient care.
[2022-10-26 06:47] LABS: ALANINE AMINOTRANSFERASE 9 U/L (12-78); ALBUMIN 2.4 G/DL (3.4-5.0); ALBUMIN/GLOBULIN RATIO 0.8 (1.1-1.5); ALKALINE PHOSPHATASE 68 IU/L (46-116); ANION GAP 10 (8-16); ASPARTATE AMINO TRANSFERASE 9 U/L (10-37); BILIRUBIN,TOTAL 0.5 MG/DL (0.1-1.0); BLOOD UREA NITROGEN 11 MG/DL (7-18); BUN/CREATININE RATIO 6.3 (6.6-38.0); CALCIUM 8.5 MG/DL (8.5-10.1); CHLORIDE 101 MMOL/L (99-107); CREATININE 1.76 MG/DL (0.40-0.90); GLUCOSE 103 MG/DL (70-104); SODIUM 140 MMOL/L (135-145); TOTAL CARBON DIOXIDE 28.7 MMOL/L (24-32); TOTAL PROTEIN 5.6 G/DL (6.4-8.2); eGFR 27 ML/MIN
[2022-10-26 07:00] VITALS: BP 92/47
[2022-10-26] MEDS: apixaban 2.5mg tablet PO SCH (07:13)
[2022-10-26] MEDS: pantoprazole 40mg Tablet.DR PO SCH (07:13)
[2022-10-26] MEDS: levoTHYROXINE 100mcg tablet PO SCH (07:13)
[2022-10-26] MEDS: duloxetine 30mg CAPSULE.DR PO SCH (07:13)
[2022-10-26] MEDS: K and/or MAG REPLACEMENT MC SCH (08:00)
[2022-10-26] MEDS ORDERED: iohexol 350MG/ML 100ml bottle IV ONE (09:02)
--- NOTE | 2022-10-26 10:58 | NUR ---
Pt stable for transfer to [facility]. PIV discontinued, cannula intact. Tele discontinued. All belongings collected and sent with patient and EMS. Called report to facility.
== END 2022-10-26 09:57 | DRG 871 ==
LOC: ER 10:08 → ED HOLD 15:55 → PCU 3S 10-18 00:27
PROVIDERS: ADMIT Family Medicine; ATTEND Family Medicine
PROC: 0DB78ZX Excision of Stomach, Pylorus, Via Natural or Artificial Opening Endoscopic, Diagnostic (ICD-10-PCS; 2022-10-21)
PROC: CT131ZZ Planar Nuclear Medicine Imaging of Kidneys, Ureters and Bladder using Technetium 99m (Tc-99m) (ICD-10-PCS; 2022-10-21)
PROC: 5A1D70Z Performance of Urinary Filtration, Intermittent, Less than 6 Hours Per Day (ICD-10-PCS; principal; 2022-10-23)
PROC: 0JH63XZ Insertion of Tunneled Vascular Access Device into Chest Subcutaneous Tissue and Fascia, Percutaneous Approach (ICD-10-PCS; 2022-10-23)
PROC: 02HV33Z Insertion of Infusion Device into Superior Vena Cava, Percutaneous Approach (ICD-10-PCS; 2022-10-23)
PROC: B548ZZA Ultrasonography of Superior Vena Cava, Guidance (ICD-10-PCS; 2022-10-23)
PROC: B5181ZA Fluoroscopy of Superior Vena Cava using Low Osmolar Contrast, Guidance (ICD-10-PCS; 2022-10-23)
PROC: 5A1D70Z Performance of Urinary Filtration, Intermittent, Less than 6 Hours Per Day (ICD-10-PCS; 2022-10-25)
DX: A41.9 Sepsis, unspecified organism (principal); I50.33 Acute on chronic diastolic (congestive) heart failure; J18.9 Pneumonia, unspecified organism; J96.21 Acute and chronic respiratory failure with hypoxia; N18.6 End stage renal disease; N17.9 Acute kidney failure, unspecified; J44.0 Chronic obstructive pulmonary disease with (acute) lower respiratory infection; N13.30 Unspecified hydronephrosis; J44.1 Chronic obstructive pulmonary disease with (acute) exacerbation; I13.2 Hypertensive heart and chronic kidney disease with heart failure and with stage 5 chronic kidney disease, or end stage renal disease; K92.1 Melena; Z20.822 Contact with and (suspected) exposure to COVID-19; E11.22 Type 2 diabetes mellitus with diabetic chronic kidney disease; I25.10 Atherosclerotic heart disease of native coronary artery without angina pectoris; Z96.653 Presence of artificial knee joint, bilateral; I48.0 Paroxysmal atrial fibrillation; M50.30 Other cervical disc degeneration, unspecified cervical region; N20.0 Calculus of kidney; R80.9 Proteinuria, unspecified; K29.70 Gastritis, unspecified, without bleeding; K27.9 Peptic ulcer, site unspecified, unspecified as acute or chronic, without hemorrhage or perforation; R34 Anuria and oliguria; E11.42 Type 2 diabetes mellitus with diabetic polyneuropathy; M51.36 Other intervertebral disc degeneration, lumbar region; D64.9 Anemia, unspecified; M19.072 Primary osteoarthritis, left ankle and foot; Z79.01 Long term (current) use of anticoagulants; Z79.899 Other long term (current) drug therapy; Z85.528 Personal history of other malignant neoplasm of kidney; Z90.5 Acquired absence of kidney; Z90.710 Acquired absence of both cervix and uterus; Z95.2 Presence of prosthetic heart valve; Z99.81 Dependence on supplemental oxygen; Z88.8 Allergy status to other drugs, medicaments and biological substances; Z88.0 Allergy status to penicillin; Z90.49 Acquired absence of other specified parts of digestive tract
CPT/HCPCS: 36415; 36558; 43239; 71045; 74176; 76770; 76937; 77001; 78707; 80053; 81001; 82272; 82570; 82948; 83605; 83735; 83880; 83935; 84100; 84132; 84133; 84145; 84156; 84300; 84484; 84560; 85025; 85027; 85610; 85730; 86705; 86706; 87040; 87081; 87207; 87340; 87502; 87503; 87811; 88305; 93005; 93306; 94640; 94760; 96365; 97110; 97116; 97161; 97530; 99152; 99285; A4615; A4620; A6402; A6449; A9562; C1750; C1769; C1894; C9113; G0257; G0378; J0456; J0696; J1200; J1815; J1885; J1940; J2150; J2250; J3010; J3430; J3490; J7030; J7040; Q0163; Q4081; Q9967